=== PATIENT | male | born 1985 | race Caucasian/White ===

== ENCOUNTER 2021-04-26 17:16 | Emergency (ER) | payer OTHER ==
[~2021-04-26] VITALS: Ht 200.7 cm; Wt 129.3 kg
[2021-04-26 17:44] VITALS: BP 154/92
[2021-04-26] MEDS ORDERED: ULTRAM 50MG TAB50 MG PO (20:53)
== END 2021-04-26 21:15 | disposition home or self-care (01) ==
LOC: ER 17:16
DX: M79.661 Pain in right lower leg (principal); F32.9 Major depressive disorder, single episode, unspecified